=== PATIENT | female | born 1950 | race Caucasian/White ===

== ENCOUNTER 2016-07-01 20:01 | Inpatient (IN) | payer MEDICARE ==
[~2016-07-01] VITALS: Ht 154.9 cm; Wt 68.0 kg
[~2016-07-01 20:01] MED LIST: FENTANYL 100 MCG/2 ML AMP IV ONE; PROPOFOL 20 ML PER ML IV ONE; ROCURONIUM 50 MG VIAL IV ONE; SUCCINYLCHOLINE 20 MG/ML VL IV ONE
[2016-07-01] MEDS ORDERED: OPTIRAY 350 100 ML VIAL HMH IV ONE (20:02)
[2016-07-01] MEDS ORDERED: OPTIRAY 350 50 ML HMH IV ONE (20:02)
[2016-07-02] VITALS (30 sets, daily range): BP systolic 104–163; RESP 9–28; TEMP 97.5–98; Ht 154.9 cm; Wt 68.0 kg
[2016-07-02] MEDS ORDERED: CEFTRIAXONE 1 GM VIAL ONE (01:05)
[2016-07-02] MEDS ORDERED: SODIUM CHLORIDE 0.9% 1,000 ML ONE (01:06)
[2016-07-02] MEDS ORDERED: SODIUM CHLORIDE 0.9% 100 ML IV ONE ×2 (01:06→04:04)
[2016-07-02] MEDS ORDERED: LIDOCAINE 1% MDV 20 ML ONE (03:03)
[2016-07-02] MEDS ORDERED: PROPOFOL 100 ML 100 ML IV ONE ×2 (03:05→06:13)
[2016-07-02] MEDS ORDERED: LACT RINGERS 1,000 ML IV SCH (03:35)
[2016-07-02] MEDS ORDERED: PIPERACIL/TAZO 3.375GM/50ML 50 ML IV ONE (03:35)
[2016-07-02] MEDS ORDERED: LACT RINGERS 1,000 ML IV ONE ×3 (04:04→08:35)
[2016-07-02] MEDS ORDERED: PIPER/TAZO 3.375 GM PYXIS ONE (04:04)
[2016-07-02] MEDS ORDERED: DEXTROSE 50% SYRINGE 50 ML IV PRN (06:00)
[2016-07-02] MEDS ORDERED: SALINE FLUSH 10 ML FLUSH PRN (06:00)
[2016-07-02] MEDS ORDERED: ONDANSETRON 4 MG VIAL IV PRN (06:00)
[2016-07-02] MEDS: SODIUM CHLORIDE 0.9% FLUSH BAG 500 ML IV SCH (06:00)
[2016-07-02] MEDS ORDERED: MORPHINE 2 MG/ML SYR IV PRN (06:00)
[2016-07-02] MEDS ORDERED: GLUCAGON 1 MG VIAL IM PRN (06:00)
[2016-07-02] MEDS ORDERED: PROPOFOL 100 ML 100 ML IV PRN (06:55)
[2016-07-02] MEDS: PIPERACIL/TAZO 3.375GM/50ML 50 ML IV SCH ×4 (07:00→23:31)
[2016-07-02] MEDS: SALINE FLUSH 10 ML FLUSH SCH ×2 (08:00→19:28)
[2016-07-02] MEDS: PANTOPRAZOLE 40 MG VIAL IV SCH ×2 (08:24→19:53)
[2016-07-02] MEDS: LACT RINGERS 1,000 ML IV SCH ×2 (08:25→14:49)
[2016-07-02] MEDS: ACETAMINOPHEN 1,000 MG/100 ML IV PRN ×2 (10:12→19:57)
[2016-07-02] MEDS ORDERED: FENTANYL 100 MCG/2 ML AMP IV ONE (10:39)
[2016-07-02] MEDS ORDERED: PROPOFOL 20 ML PER ML IV ONE (10:39)
[2016-07-02] MEDS ORDERED: GLYCOPYRROLATE 0.2 MG/ML VIAL IV ONE (10:39)
[2016-07-02] MEDS ORDERED: NEOSTIGMINE 10 MG/10 ML VIAL IV ONE (10:39)
[2016-07-02] MEDS ORDERED: LIDOCAINE 2% SYR 5 ML IV ONE (10:39)
[2016-07-02] MEDS ORDERED: ROCURONIUM 50 MG VIAL IV ONE (10:39)
[2016-07-02] MEDS ORDERED: ONDANSETRON 4 MG VIAL IV PUSH ONE (10:39)
[2016-07-02] MEDS: MAGNESIUM SULF 1 GM/100 ML 100 ML IV SCH ×4 (11:00→14:26)
[2016-07-03] VITALS (25 sets, daily range): BP systolic 124–161; RESP 9–25; TEMP 97.3–98.6
[2016-07-03] MEDS: MORPHINE 2 MG/ML SYR IV PRN ×4 (00:54→23:05)
[2016-07-03] MEDS: PIPERACIL/TAZO 3.375GM/50ML 50 ML IV SCH (05:11)
[2016-07-03] MEDS: SODIUM CHLORIDE 0.9% FLUSH BAG 500 ML IV SCH (05:11)
[2016-07-03] MEDS: SALINE FLUSH 10 ML FLUSH SCH ×2 (07:53→21:34)
[2016-07-03] MEDS: PANTOPRAZOLE 40 MG VIAL IV SCH ×2 (07:53→21:31)
[2016-07-03] MEDS ORDERED: LACT RINGERS 1,000 ML IV SCH (08:55)
[2016-07-03] MEDS: PIPERACIL/TAZO 2.25GM/50ML 50 ML IV SCH ×2 (11:45→17:21)
[2016-07-03] MEDS: MORPHINE 4 MG/ML SYR IV PRN ×3 (12:18→21:11)
[2016-07-03] MEDS: METOPROLOL 5 MG/5 ML VIAL IV SCH ×2 (17:21→21:33)
[2016-07-04] VITALS (25 sets, daily range): BP systolic 131–180; RESP 9–22; TEMP 98.4–98.9
[2016-07-04] MEDS: PIPERACIL/TAZO 2.25GM/50ML 50 ML IV SCH ×4 (00:17→16:37)
[2016-07-04] MEDS: ACETAMINOPHEN 1,000 MG/100 ML IV PRN ×2 (00:17→10:02)
[2016-07-04] MEDS: METOPROLOL 5 MG/5 ML VIAL IV SCH ×7 (00:50→23:30)
[2016-07-04] MEDS: SODIUM CHLORIDE 0.9% FLUSH BAG 500 ML IV SCH (04:32)
[2016-07-04] MEDS: MORPHINE 2 MG/ML SYR IV PRN ×3 (06:11→23:27)
[2016-07-04] MEDS ORDERED: LACT RINGERS 1,000 ML IV SCH ×2 (06:55→10:25)
[2016-07-04] MEDS: SALINE FLUSH 10 ML FLUSH SCH ×2 (09:58→20:33)
[2016-07-04] MEDS: PANTOPRAZOLE 40 MG VIAL IV SCH ×2 (09:59→20:33)
[2016-07-04] MEDS: POTASSIUM CHLORIDE PREMIX 50 ML IV SCH ×4 (11:08→16:32)
[2016-07-04] MEDS: MORPHINE 4 MG/ML SYR IV PRN (15:35)
[2016-07-04] MEDS ORDERED: MISSING DOSE XX ONE (23:25)
[2016-07-05] VITALS (26 sets, daily range): BP systolic 116–184; RESP 8–25; TEMP 97.3–99.4
[2016-07-05] MEDS: PIPERACIL/TAZO 2.25GM/50ML 50 ML IV SCH ×4 (00:36→18:31)
[2016-07-05] MEDS: ACETAMINOPHEN 1,000 MG/100 ML IV PRN (00:36)
[2016-07-05] MEDS: METOPROLOL 5 MG/5 ML VIAL IV SCH ×5 (04:06→19:59)
[2016-07-05] MEDS: SODIUM CHLORIDE 0.9% FLUSH BAG 500 ML IV SCH (04:08)
[2016-07-05] MEDS: MORPHINE 2 MG/ML SYR IV PRN ×2 (06:15→22:54)
[2016-07-05] MEDS ORDERED: PANTOPRAZOLE 40 MG TAB PO SCH (07:00)
[2016-07-05] MEDS: PANTOPRAZOLE 40 MG VIAL IV SCH ×2 (08:55→20:00)
[2016-07-05] MEDS: SALINE FLUSH 10 ML FLUSH SCH ×2 (08:55→19:58)
[2016-07-05] MEDS: POTASSIUM CHLORIDE PREMIX 50 ML IV SCH ×4 (10:23→14:30)
[2016-07-05] MEDS: ACETAMINOPHEN 325 MG TAB PO PRN (15:29)
[2016-07-05] MEDS: LABETALOL 100 MG/20 ML VIAL IV PUSH PRN (15:30)
[2016-07-05] MEDS: QUEtiapine 25 MG TAB PO SCH (19:59)
[2016-07-06] VITALS (25 sets, daily range): BP systolic 96–184; RESP 10–22; TEMP 98.3–98.9
[2016-07-06] MEDS: PIPERACIL/TAZO 2.25GM/50ML 50 ML IV SCH ×2 (00:55→05:34)
[2016-07-06] MEDS: METOPROLOL 5 MG/5 ML VIAL IV SCH ×6 (00:55→21:07)
[2016-07-06] MEDS: MORPHINE 4 MG/ML SYR IV PRN ×3 (02:50→14:44)
[2016-07-06] MEDS: ACETAMINOPHEN 325 MG TAB PO PRN (02:50)
[2016-07-06] MEDS: SODIUM CHLORIDE 0.9% FLUSH BAG 500 ML IV SCH (05:34)
[2016-07-06] MEDS ORDERED: PHARMACY TO DOSE ZOSYN IV SCH ×2 (08:35)
[2016-07-06] MEDS: SALINE FLUSH 10 ML FLUSH SCH ×2 (08:47→19:41)
[2016-07-06] MEDS: PANTOPRAZOLE 40 MG VIAL IV SCH ×2 (08:50→21:07)
[2016-07-06] MEDS: PIPERACIL/TAZO 3.375GM/50ML 50 ML IV SCH ×2 (11:15→16:59)
[2016-07-06] MEDS: QUEtiapine 25 MG TAB PO SCH (21:08)
[2016-07-07] VITALS (20 sets, daily range): BP systolic 96–169; RESP 10–21; TEMP 97.5–99
[2016-07-07] MEDS: METOPROLOL 5 MG/5 ML VIAL IV SCH ×6 (00:32→21:19)
[2016-07-07] MEDS: PIPERACIL/TAZO 3.375GM/50ML 50 ML IV SCH ×4 (00:34→18:05)
[2016-07-07] MEDS: MORPHINE 2 MG/ML SYR IV PRN ×2 (00:35→16:41)
[2016-07-07] MEDS: SODIUM CHLORIDE 0.9% FLUSH BAG 500 ML IV SCH (05:10)
[2016-07-07] MEDS ORDERED: MAGNESIUM SULF 1 GM/100 ML 100 ML IV ONE (07:40)
[2016-07-07] MEDS ORDERED: POTASSIUM PHOSPHATE 30 MMOL in SODIUM CHLORIDE 0.9% 250 ML IV ONE (07:40)
[2016-07-07] MEDS: PANTOPRAZOLE 40 MG VIAL IV SCH (08:00)
[2016-07-07] MEDS: SALINE FLUSH 10 ML FLUSH SCH ×2 (08:57→20:40)
[2016-07-07] MEDS: PANTOPRAZOLE 40 MG TAB PO SCH ×2 (08:57→17:46)
[2016-07-07] MEDS ORDERED: MISSING DOSE XX ONE ×3 (16:50→20:55)
[2016-07-07] MEDS ORDERED: SODIUM CHLORIDE 0.9% 500 ML IV ONE (18:20)
[2016-07-07] MEDS: MORPHINE 4 MG/ML SYR IV PRN ×2 (18:34→20:40)
[2016-07-07] MEDS: QUEtiapine 25 MG TAB PO SCH (21:00)
[2016-07-08] VITALS (66 sets, daily range): BP systolic 80–183; RESP 9–22; TEMP 97.6–98.7
[2016-07-08] MEDS: METOPROLOL 5 MG/5 ML VIAL IV SCH ×6 (00:01→23:03)
[2016-07-08] MEDS: PIPERACIL/TAZO 3.375GM/50ML 50 ML IV SCH ×5 (00:01→23:03)
[2016-07-08] MEDS: MORPHINE 2 MG/ML SYR IV PRN ×3 (01:23→16:54)
[2016-07-08] MEDS ORDERED: METOPROLOL 5 MG/5 ML VIAL IV ONE (02:18)
[2016-07-08] MEDS ORDERED: CARDIZEM 1 MG/ML DRIP 125 ML IV PRN (03:25)
[2016-07-08] MEDS: SODIUM CHLORIDE 0.9% FLUSH BAG 500 ML IV SCH (03:58)
[2016-07-08] MEDS ORDERED: *PINK BRACELET XX ONE (04:25)
[2016-07-08] MEDS: PANTOPRAZOLE 40 MG TAB PO SCH (06:01)
[2016-07-08] MEDS: ACETAMINOPHEN 325 MG TAB PO PRN (06:52)
[2016-07-08] MEDS: *HOME MEDS KEPT IN PHARMACY XX SCH ×2 (07:18→19:29)
[2016-07-08] MEDS ORDERED: KCL 20 MEQ/15 ML UDC PO ONE (07:30)
[2016-07-08] MEDS ORDERED: MAGNESIUM SULF 1 GM/100 ML 100 ML IV ONE (07:55)
[2016-07-08] MEDS ORDERED: POTASSIUM CHLORIDE PREMIX 50 ML IV SCH (07:55)
[2016-07-08] MEDS: SALINE FLUSH 10 ML FLUSH SCH ×2 (08:15→19:53)
[2016-07-08] MEDS ORDERED: METOPROLOL TART 25 MG TAB PO SCH (09:00)
[2016-07-08] MEDS ORDERED: OPTIRAY 350 100 ML VIAL HMH IV ONE (10:03)
[2016-07-08] MEDS: POTASSIUM CHLORIDE PREMIX 50 ML IV SCH ×4 (10:14→19:57)
[2016-07-08] MEDS ORDERED: FAMOTIDINE 20 MG INJ IV ONE (11:35)
[2016-07-08] MEDS ORDERED: LACT RINGERS 1,000 ML IV SCH (11:35)
[2016-07-08] MEDS ORDERED: METOCLOPRAMIDE 10 MG/2 ML VIAL IV PUSH ONE (11:35)
[2016-07-08] MEDS ORDERED: MIDAZOLAM 2 MG/2 ML INJ IV ONE (11:35)
[2016-07-08] MEDS ORDERED: LIDOCAINE 1% BUFFERED 1 ML SYR INTRADERM PRN (11:35)
[2016-07-08] MEDS ORDERED: MISSING DOSE XX ONE (13:00)
[2016-07-08] MEDS ORDERED: MORPHINE 2 MG/ML SYR IV PRN (15:15)
[2016-07-08] MEDS ORDERED: MEPERIDINE 25 MG/ML IV PRN (15:15)
[2016-07-08] MEDS ORDERED: OXYCODONE 5 MG TAB PO PRN (15:15)
[2016-07-08] MEDS ORDERED: DILAUDID 1 MG/ML AMP IV PRN (15:15)
[2016-07-08] MEDS ORDERED: MORPHINE 4 MG/ML SYR IV PRN (15:15)
[2016-07-08] MEDS ORDERED: ONDANSETRON 4 MG VIAL IV PRN (15:15)
[2016-07-08] MEDS ORDERED: SALINE FLUSH 10 ML FLUSH PRN (15:25)
[2016-07-08] MEDS: SODIUM CHLORIDE 0.9% 1,000 ML IV SCH (16:25)
[2016-07-08] MEDS: QUEtiapine 25 MG TAB PO SCH (19:27)
[2016-07-08] MEDS: PANTOPRAZOLE 40 MG VIAL IV SCH (19:52)
[2016-07-08] MEDS: MORPHINE 4 MG/ML SYR IV PRN (19:54)
[2016-07-08] MEDS: LABETALOL 100 MG/20 ML VIAL IV PUSH PRN (21:28)
[2016-07-09] VITALS (27 sets, daily range): BP systolic 89–179; RESP 10–19; TEMP 97.8–98.7
[2016-07-09] MEDS: MORPHINE 4 MG/ML SYR IV PRN (00:35)
[2016-07-09] MEDS: SODIUM CHLORIDE 0.9% 1,000 ML IV SCH (04:05)
[2016-07-09] MEDS: SODIUM CHLORIDE 0.9% FLUSH BAG 500 ML IV SCH (04:06)
[2016-07-09] MEDS: METOPROLOL 5 MG/5 ML VIAL IV SCH ×4 (05:07→23:54)
[2016-07-09] MEDS: PIPERACIL/TAZO 3.375GM/50ML 50 ML IV SCH ×4 (05:07→23:53)
[2016-07-09] MEDS: MORPHINE 2 MG/ML SYR IV PRN ×3 (05:12→18:55)
[2016-07-09] MEDS: *HOME MEDS KEPT IN PHARMACY XX SCH ×2 (07:06→19:53)
[2016-07-09] MEDS: PANTOPRAZOLE 40 MG VIAL IV SCH ×2 (07:46→20:25)
[2016-07-09] MEDS: SALINE FLUSH 10 ML FLUSH SCH ×2 (07:46→20:25)
[2016-07-09] MEDS ORDERED: MISSING DOSE XX ONE (10:55)
[2016-07-09] MEDS: METRONIDAZOLE 500MG/100ML 100 ML IV SCH ×2 (16:03→23:53)
[2016-07-09] MEDS: QUEtiapine 25 MG TAB PO SCH (20:16)
[2016-07-10] VITALS (26 sets, daily range): BP systolic 96–173; RESP 8–23; TEMP 97.4–98.5
[2016-07-10] MEDS: MORPHINE 2 MG/ML SYR IV PRN ×8 (00:11→19:56)
[2016-07-10] MEDS: SODIUM CHLORIDE 0.9% FLUSH BAG 500 ML IV SCH (06:00)
[2016-07-10] MEDS: SODIUM CHLORIDE 0.9% 1,000 ML IV SCH (06:09)
[2016-07-10] MEDS: METOPROLOL 5 MG/5 ML VIAL IV SCH ×4 (06:11→23:40)
[2016-07-10] MEDS: PIPERACIL/TAZO 3.375GM/50ML 50 ML IV SCH ×4 (06:11→23:39)
[2016-07-10] MEDS: *HOME MEDS KEPT IN PHARMACY XX SCH ×2 (08:00→19:28)
[2016-07-10] MEDS: SALINE FLUSH 10 ML FLUSH SCH ×2 (08:40→19:54)
[2016-07-10] MEDS: PANTOPRAZOLE 40 MG VIAL IV SCH ×2 (08:41→19:54)
[2016-07-10] MEDS: METRONIDAZOLE 500MG/100ML 100 ML IV SCH ×3 (08:44→23:40)
[2016-07-10] MEDS: MORPHINE 4 MG/ML SYR IV PRN (17:34)
[2016-07-10] MEDS: QUEtiapine 25 MG TAB PO SCH (19:57)
[2016-07-11] VITALS (24 sets, daily range): BP systolic 105–160; RESP 8–15; TEMP 98.3–98.9
[2016-07-11] MEDS: MORPHINE 2 MG/ML SYR IV PRN ×4 (02:34→11:02)
[2016-07-11] MEDS: PIPERACIL/TAZO 3.375GM/50ML 50 ML IV SCH ×3 (05:28→18:10)
[2016-07-11] MEDS: SODIUM CHLORIDE 0.9% FLUSH BAG 500 ML IV SCH (05:28)
[2016-07-11] MEDS: METOPROLOL 5 MG/5 ML VIAL IV SCH ×3 (06:36→18:10)
[2016-07-11] MEDS: SALINE FLUSH 10 ML FLUSH SCH ×2 (07:26→21:31)
[2016-07-11] MEDS: *HOME MEDS KEPT IN PHARMACY XX SCH ×2 (07:27→19:50)
[2016-07-11] MEDS: METRONIDAZOLE 500MG/100ML 100 ML IV SCH ×2 (07:44→16:31)
[2016-07-11] MEDS: PANTOPRAZOLE 40 MG VIAL IV SCH (07:44)
[2016-07-11] MEDS: MICAFUNGIN 100 MG in SODIUM CHLORIDE 0.9% 100 ML IV SCH (09:57)
[2016-07-11] MEDS: MORPHINE 4 MG/ML SYR IV PRN ×2 (12:59→16:38)
[2016-07-11] MEDS: PANTOPRAZOLE 40 MG TAB PO SCH (16:00)
[2016-07-11] MEDS: QUEtiapine 25 MG TAB PO SCH (21:31)
[2016-07-12] VITALS (25 sets, daily range): BP systolic 127–187; RESP 10–23; TEMP 98.2–98.8
[2016-07-12] MEDS: METOPROLOL 5 MG/5 ML VIAL IV SCH ×4 (00:07→18:07)
[2016-07-12] MEDS: METRONIDAZOLE 500MG/100ML 100 ML IV SCH ×2 (00:08→07:48)
[2016-07-12] MEDS: PIPERACIL/TAZO 3.375GM/50ML 50 ML IV SCH ×4 (00:08→18:07)
[2016-07-12] MEDS: SODIUM CHLORIDE 0.9% 1,000 ML IV SCH (05:09)
[2016-07-12] MEDS: SODIUM CHLORIDE 0.9% FLUSH BAG 500 ML IV SCH (05:10)
[2016-07-12] MEDS: PANTOPRAZOLE 40 MG TAB PO SCH ×2 (05:12→15:24)
[2016-07-12] MEDS: SALINE FLUSH 10 ML FLUSH SCH ×2 (07:22→19:39)
[2016-07-12] MEDS: *HOME MEDS KEPT IN PHARMACY XX SCH ×2 (07:23→19:23)
[2016-07-12] MEDS: MICAFUNGIN 100 MG in SODIUM CHLORIDE 0.9% 100 ML IV SCH (07:48)
[2016-07-12] MEDS: MORPHINE 4 MG/ML SYR IV PRN ×4 (07:49→18:07)
[2016-07-12] MEDS ORDERED: CALCIUM GLUCONATE 1,000 MG in SODIUM CHLORIDE 0.9% 100 ML IV ONE (08:30)
[2016-07-12] MEDS: POTASSIUM CHLORIDE PREMIX 50 ML IV SCH ×6 (08:59→14:17)
[2016-07-12] MEDS: [UNRECOGNIZED DRUG - OTHER] SUBQ SCH ×3 (11:56→20:51)
[2016-07-12] MEDS: QUEtiapine 25 MG TAB PO SCH (19:40)
[2016-07-12] MEDS ORDERED: MISSING DOSE XX ONE (20:00)
[2016-07-13] VITALS (24 sets, daily range): BP systolic 109–178; RESP 9–26; TEMP 98–98.8
[2016-07-13] MEDS: METOPROLOL 5 MG/5 ML VIAL IV SCH ×4 (00:06→17:35)
[2016-07-13] MEDS: PIPERACIL/TAZO 3.375GM/50ML 50 ML IV SCH ×5 (00:07→23:23)
[2016-07-13] MEDS: ONDANSETRON 4 MG VIAL IV PRN (03:21)
[2016-07-13] MEDS: SODIUM CHLORIDE 0.9% 1,000 ML IV SCH (04:15)
[2016-07-13] MEDS: PANTOPRAZOLE 40 MG TAB PO SCH ×2 (04:17→16:15)
[2016-07-13] MEDS: SODIUM CHLORIDE 0.9% FLUSH BAG 500 ML IV SCH (04:17)
[2016-07-13] MEDS: *HOME MEDS KEPT IN PHARMACY XX SCH ×2 (08:00→20:00)
[2016-07-13] MEDS: SALINE FLUSH 10 ML FLUSH SCH ×2 (08:21→20:13)
[2016-07-13] MEDS: MICAFUNGIN 100 MG in SODIUM CHLORIDE 0.9% 100 ML IV SCH (08:22)
[2016-07-13] MEDS: [UNRECOGNIZED DRUG - OTHER] SUBQ SCH ×3 (08:22→20:13)
[2016-07-13] MEDS ORDERED: LISINOPRIL 10 MG TAB PO SCH (10:10)
[2016-07-13] MEDS: MAGNESIUM SULF 1 GM/100 ML 100 ML IV SCH ×4 (11:27→16:15)
[2016-07-13] MEDS: METOPROLOL TART 25 MG TAB PO SCH ×2 (11:28→20:13)
[2016-07-13] MEDS: LEVEMIR INSULIN SUBQ SCH ×2 (11:35→20:20)
[2016-07-13] MEDS: MORPHINE 2 MG/ML SYR IV PRN ×2 (13:49→18:19)
[2016-07-13] MEDS: QUEtiapine 25 MG TAB PO SCH (20:13)
[2016-07-14] VITALS (24 sets, daily range): BP systolic 95–172; RESP 9–16; TEMP 97.5–98.4
[2016-07-14] MEDS ORDERED: *PATIENT RECEIVING TUBE FEEDS, ASSESS/ADJUST MEDICATIONS NG SCH (04:45)
[2016-07-14] MEDS: SODIUM CHLORIDE 0.9% 1,000 ML IV SCH (04:50)
[2016-07-14] MEDS: SODIUM CHLORIDE 0.9% FLUSH BAG 500 ML IV SCH (04:52)
[2016-07-14] MEDS: PIPERACIL/TAZO 3.375GM/50ML 50 ML IV SCH ×3 (05:15→16:19)
[2016-07-14] MEDS ORDERED: ACETAMINOPHEN 650 MG/20.3 ML UDC NG PRN ×2 (05:15→05:25)
[2016-07-14] MEDS: LANSOPRAZOLE 30 MG SOLUTAB NG SCH ×2 (05:43→16:22)
[2016-07-14] MEDS: [UNRECOGNIZED DRUG - OTHER] SUBQ SCH ×3 (07:45→20:17)
[2016-07-14] MEDS: SALINE FLUSH 10 ML FLUSH SCH ×2 (07:45→20:16)
[2016-07-14] MEDS: METOPROLOL TART 25 MG TAB NG SCH ×2 (07:46→20:17)
[2016-07-14] MEDS: MICAFUNGIN 100 MG in SODIUM CHLORIDE 0.9% 100 ML IV SCH (07:46)
[2016-07-14] MEDS: *HOME MEDS KEPT IN PHARMACY XX SCH ×2 (07:47→20:00)
[2016-07-14] MEDS: LEVEMIR INSULIN SUBQ SCH ×2 (07:47→20:21)
[2016-07-14] MEDS ORDERED: LISINOPRIL 10 MG TAB NG SCH (09:00)
[2016-07-14] MEDS ORDERED: KCL 20 MEQ/15 ML UDC PO ONE (14:30)
[2016-07-14] MEDS: MORPHINE 2 MG/ML SYR IV PRN ×3 (16:20→21:25)
[2016-07-14] MEDS: QUEtiapine 25 MG TAB NG SCH (20:17)
[2016-07-15] VITALS (24 sets, daily range): BP systolic 125–187; RESP 10–21; TEMP 97.7–98.2
[2016-07-15] MEDS: PIPERACIL/TAZO 3.375GM/50ML 50 ML IV SCH ×3 (01:47→13:08)
[2016-07-15] MEDS: MORPHINE 2 MG/ML SYR IV PRN ×5 (01:47→18:35)
[2016-07-15] MEDS: SODIUM CHLORIDE 0.9% FLUSH BAG 500 ML IV SCH (06:00)
[2016-07-15] MEDS: LANSOPRAZOLE 30 MG SOLUTAB NG SCH ×2 (06:22→16:38)
[2016-07-15] MEDS: *HOME MEDS KEPT IN PHARMACY XX SCH ×2 (07:55→20:00)
[2016-07-15] MEDS ORDERED: MISSING DOSE XX ONE (08:55)
[2016-07-15] MEDS: MICAFUNGIN 100 MG in SODIUM CHLORIDE 0.9% 100 ML IV SCH (09:02)
[2016-07-15] MEDS: SALINE FLUSH 10 ML FLUSH SCH ×2 (09:02→20:50)
[2016-07-15] MEDS: [UNRECOGNIZED DRUG - OTHER] SUBQ SCH ×3 (09:04→20:52)
[2016-07-15] MEDS: LEVEMIR INSULIN SUBQ SCH ×2 (09:23→20:56)
[2016-07-15] MEDS: METOPROLOL TART 25 MG TAB NG SCH ×2 (09:32→20:52)
[2016-07-15] MEDS: LISINOPRIL 10 MG TAB NG SCH (09:33)
[2016-07-15] MEDS: QUEtiapine 25 MG TAB NG SCH (20:52)
[2016-07-16] VITALS (18 sets, daily range): BP systolic 129–169; RESP 10–26; TEMP 97.8–98.3
[2016-07-16] MEDS: SODIUM CHLORIDE 0.9% 1,000 ML IV SCH ×2 (01:38→20:52)
[2016-07-16] MEDS: MORPHINE 2 MG/ML SYR IV PRN ×4 (03:46→16:57)
[2016-07-16] MEDS: SODIUM CHLORIDE 0.9% FLUSH BAG 500 ML IV SCH (05:58)
[2016-07-16] MEDS: LANSOPRAZOLE 30 MG SOLUTAB NG SCH ×2 (05:59→16:59)
[2016-07-16] MEDS: *HOME MEDS KEPT IN PHARMACY XX SCH ×2 (08:00→20:00)
[2016-07-16] MEDS: MICAFUNGIN 100 MG in SODIUM CHLORIDE 0.9% 100 ML IV SCH (08:47)
[2016-07-16] MEDS: SALINE FLUSH 10 ML FLUSH SCH ×2 (08:47→20:00)
[2016-07-16] MEDS: METOPROLOL TART 25 MG TAB NG SCH ×2 (08:48→20:45)
[2016-07-16] MEDS: LISINOPRIL 10 MG TAB NG SCH (08:50)
[2016-07-16] MEDS: [UNRECOGNIZED DRUG - OTHER] SUBQ SCH ×3 (08:50→20:57)
[2016-07-16] MEDS: LEVEMIR INSULIN SUBQ SCH ×2 (08:52→20:47)
[2016-07-16] MEDS ORDERED: MISSING DOSE XX ONE (16:55)
[2016-07-16] MEDS: MICONAZOLE 2% PWD TOPICAL PRN (16:59)
[2016-07-16] MEDS: QUEtiapine 25 MG TAB NG SCH (20:45)
[2016-07-17] MEDS: MORPHINE 2 MG/ML SYR IV PRN ×7 (01:25→20:15)
[2016-07-17 03:06] VITALS: BP_SYST 139; RESP 16; TEMP 98.4
[2016-07-17] MEDS: SODIUM CHLORIDE 0.9% FLUSH BAG 500 ML IV SCH (05:13)
[2016-07-17] MEDS: LANSOPRAZOLE 30 MG SOLUTAB NG SCH ×2 (06:19→15:36)
[2016-07-17 07:49] VITALS: BP_SYST 143; RESP 18; TEMP 98.6
[2016-07-17] MEDS: *HOME MEDS KEPT IN PHARMACY XX SCH ×2 (08:00→19:30)
[2016-07-17] MEDS: SALINE FLUSH 10 ML FLUSH SCH ×2 (08:00→19:31)
[2016-07-17] MEDS: MICAFUNGIN 100 MG in SODIUM CHLORIDE 0.9% 100 ML IV SCH (08:24)
[2016-07-17] MEDS: [UNRECOGNIZED DRUG - OTHER] SUBQ SCH ×3 (08:29→20:20)
[2016-07-17] MEDS: LEVEMIR INSULIN SUBQ SCH ×2 (08:35→20:33)
[2016-07-17] MEDS: METOPROLOL TART 25 MG TAB NG SCH ×2 (08:40→20:24)
[2016-07-17] MEDS: LISINOPRIL 10 MG TAB NG SCH (08:43)
[2016-07-17] MEDS: ONDANSETRON 4 MG VIAL IV PRN (08:45)
[2016-07-17] MEDS ORDERED: KCL 20 MEQ/15 ML UDC JTUBE ONE (09:55)
[2016-07-17 12:15] VITALS: BP_SYST 152; RESP 16; TEMP 97.4
[2016-07-17 15:19] VITALS: BP_SYST 168; RESP 16; TEMP 97.9
[2016-07-17] MEDS: SODIUM CHLORIDE 0.9% 1,000 ML IV SCH (18:29)
[2016-07-17 19:32] VITALS: BP_SYST 177; RESP 18; TEMP 98.2
[2016-07-17] MEDS: LABETALOL 100 MG/20 ML VIAL IV PUSH PRN (20:17)
[2016-07-17] MEDS: QUEtiapine 25 MG TAB NG SCH (20:24)
[2016-07-17 23:12] VITALS: BP_SYST 147; RESP 16; TEMP 98.5
[2016-07-18 04:20] VITALS: BP_SYST 150; RESP 18; TEMP 98.1
[2016-07-18] MEDS: SODIUM CHLORIDE 0.9% FLUSH BAG 500 ML IV SCH (04:37)
[2016-07-18] MEDS: MORPHINE 2 MG/ML SYR IV PRN ×3 (05:16→21:27)
[2016-07-18] MEDS: LANSOPRAZOLE 30 MG SOLUTAB NG SCH ×2 (06:13→16:49)
[2016-07-18 07:38] VITALS: BP_SYST 157; RESP 18; TEMP 98.2
[2016-07-18] MEDS: SALINE FLUSH 10 ML FLUSH SCH ×2 (08:00→19:49)
[2016-07-18] MEDS: [UNRECOGNIZED DRUG - OTHER] SUBQ SCH ×3 (08:26→21:26)
[2016-07-18] MEDS: *HOME MEDS KEPT IN PHARMACY XX SCH ×2 (08:26→19:49)
[2016-07-18] MEDS: LEVEMIR INSULIN SUBQ SCH ×2 (08:27→21:51)
[2016-07-18] MEDS: LISINOPRIL 10 MG TAB NG SCH (08:27)
[2016-07-18] MEDS: METOPROLOL TART 25 MG TAB NG SCH ×2 (08:27→21:26)
[2016-07-18 11:07] VITALS: BP_SYST 160; RESP 18; TEMP 98.4
[2016-07-18] MEDS: MORPHINE 4 MG/ML SYR IV PRN (13:55)
[2016-07-18] MEDS: SODIUM CHLORIDE 0.9% 1,000 ML IV SCH (14:29)
[2016-07-18 15:19] VITALS: BP_SYST 165; RESP 18; TEMP 98.3
[2016-07-18 20:45] VITALS: BP_SYST 157; RESP 16; TEMP 98.4
[2016-07-18] MEDS: QUEtiapine 25 MG TAB NG SCH (21:26)
[2016-07-18 23:35] VITALS: BP_SYST 148; RESP 16; TEMP 98.2
[2016-07-19] MEDS: SODIUM CHLORIDE 0.9% FLUSH BAG 500 ML IV SCH (04:25)
[2016-07-19 04:56] VITALS: BP_SYST 138; RESP 20; TEMP 97.9
[2016-07-19] MEDS: LANSOPRAZOLE 30 MG SOLUTAB NG SCH ×2 (05:39→15:57)
[2016-07-19] MEDS: MORPHINE 2 MG/ML SYR IV PRN ×3 (05:40→21:52)
[2016-07-19 07:33] VITALS: BP_SYST 154; RESP 18; TEMP 98.3
[2016-07-19] MEDS: *HOME MEDS KEPT IN PHARMACY XX SCH ×2 (08:00→21:25)
[2016-07-19] MEDS: LEVEMIR INSULIN SUBQ SCH ×2 (08:20→21:47)
[2016-07-19] MEDS: LISINOPRIL 10 MG TAB NG SCH (08:21)
[2016-07-19] MEDS: SALINE FLUSH 10 ML FLUSH SCH ×2 (08:21→21:41)
[2016-07-19] MEDS: [UNRECOGNIZED DRUG - OTHER] SUBQ SCH ×3 (08:21→21:48)
[2016-07-19] MEDS: METOPROLOL TART 25 MG TAB NG SCH ×2 (08:21→21:47)
[2016-07-19 11:07] VITALS: BP_SYST 150; RESP 20; TEMP 98.2
[2016-07-19] MEDS: SODIUM CHLORIDE 0.9% 1,000 ML IV SCH (12:28)
[2016-07-19] MEDS: FLUCONAZOLE 100 MG in SODIUM CHLORIDE 0.9% 50 ML IV SCH (13:17)
[2016-07-19 15:08] VITALS: BP_SYST 158; RESP 20; TEMP 98.5
[2016-07-19 19:33] VITALS: BP_SYST 183; RESP 20; TEMP 98.3
[2016-07-19] MEDS: QUEtiapine 25 MG TAB NG SCH (21:47)
[2016-07-19 23:21] VITALS: BP_SYST 147; RESP 20; TEMP 98.1
[2016-07-20] VITALS (8 sets, daily range): BP systolic 138–171; RESP 16–20; TEMP 97.2–98
[2016-07-20] MEDS: SODIUM CHLORIDE 0.9% FLUSH BAG 500 ML IV SCH (00:15)
[2016-07-20] MEDS: LANSOPRAZOLE 30 MG SOLUTAB NG SCH ×2 (06:00→16:23)
[2016-07-20] MEDS: SALINE FLUSH 10 ML FLUSH SCH ×2 (08:00→21:12)
[2016-07-20] MEDS: *HOME MEDS KEPT IN PHARMACY XX SCH ×2 (08:00→20:00)
[2016-07-20] MEDS: [UNRECOGNIZED DRUG - OTHER] SUBQ SCH ×3 (08:40→20:24)
[2016-07-20] MEDS: LISINOPRIL 10 MG TAB NG SCH (08:41)
[2016-07-20] MEDS: METOPROLOL TART 25 MG TAB NG SCH ×2 (08:41→20:24)
[2016-07-20] MEDS: LEVEMIR INSULIN SUBQ SCH ×2 (08:42→21:12)
[2016-07-20] MEDS: FLUCONAZOLE 100 MG in SODIUM CHLORIDE 0.9% 50 ML IV SCH (08:44)
[2016-07-20] MEDS: SODIUM CHLORIDE 0.9% 1,000 ML IV SCH (12:48)
[2016-07-20] MEDS: QUEtiapine 25 MG TAB NG SCH (20:25)
[2016-07-20] MEDS: MORPHINE 2 MG/ML SYR IV PRN (21:13)
[2016-07-21] VITALS (7 sets, daily range): BP systolic 161–170; RESP 16–20; TEMP 97.4–98.3
[2016-07-21] MEDS: MORPHINE 4 MG/ML SYR IV PRN ×3 (03:20→18:23)
[2016-07-21] MEDS: LANSOPRAZOLE 30 MG SOLUTAB NG SCH ×2 (06:07→17:05)
[2016-07-21] MEDS: SODIUM CHLORIDE 0.9% FLUSH BAG 500 ML IV SCH (06:11)
[2016-07-21] MEDS: SALINE FLUSH 10 ML FLUSH SCH ×2 (08:00→20:00)
[2016-07-21] MEDS: *HOME MEDS KEPT IN PHARMACY XX SCH ×2 (08:00→20:00)
[2016-07-21] MEDS: [UNRECOGNIZED DRUG - OTHER] SUBQ SCH ×3 (08:34→20:28)
[2016-07-21] MEDS: FLUCONAZOLE 100 MG in SODIUM CHLORIDE 0.9% 50 ML IV SCH (08:35)
[2016-07-21] MEDS: LISINOPRIL 20 MG TAB NG SCH (08:36)
[2016-07-21] MEDS: METOPROLOL TART 25 MG TAB NG SCH ×2 (08:36→20:27)
[2016-07-21] MEDS: LEVEMIR INSULIN SUBQ SCH ×2 (08:47→20:26)
[2016-07-21] MEDS: SODIUM CHLORIDE 0.9% 1,000 ML IV SCH (18:23)
[2016-07-21] MEDS: QUEtiapine 25 MG TAB NG SCH (20:27)
[2016-07-22] VITALS (7 sets, daily range): BP systolic 151–166; RESP 16–18; TEMP 97.7–100.1
[2016-07-22] MEDS: MORPHINE 2 MG/ML SYR IV PRN ×2 (02:24→06:03)
[2016-07-22] MEDS: SODIUM CHLORIDE 0.9% FLUSH BAG 500 ML IV SCH (05:12)
[2016-07-22] MEDS: LANSOPRAZOLE 30 MG SOLUTAB NG SCH ×2 (05:54→17:18)
[2016-07-22] MEDS: SALINE FLUSH 10 ML FLUSH SCH (08:00)
[2016-07-22] MEDS: *HOME MEDS KEPT IN PHARMACY XX SCH ×2 (09:00→20:00)
[2016-07-22] MEDS: [UNRECOGNIZED DRUG - OTHER] SUBQ SCH ×3 (09:00→21:00)
[2016-07-22] MEDS: FLUCONAZOLE 100 MG in SODIUM CHLORIDE 0.9% 50 ML IV SCH (09:00)
[2016-07-22] MEDS: LEVEMIR INSULIN SUBQ SCH ×2 (09:02→21:42)
[2016-07-22] MEDS: METOPROLOL TART 25 MG TAB NG SCH (11:22)
[2016-07-22] MEDS: LISINOPRIL 20 MG TAB NG SCH (11:23)
[2016-07-22] MEDS: FLUCONAZOLE 100 MG TAB PO SCH (16:31)
[2016-07-22] MEDS: PANTOPRAZOLE 40 MG TAB PO SCH (21:00)
[2016-07-22] MEDS: METOPROLOL TART 25 MG TAB PO SCH (21:01)
[2016-07-22] MEDS: QUEtiapine 25 MG TAB PO SCH (22:12)
[2016-07-22] MEDS ORDERED: ACETAMINOPHEN 650 MG/20.3 ML UDC PO PRN (23:25)
[2016-07-23] VITALS (8 sets, daily range): BP systolic 143–166; RESP 18–20; TEMP 97.3–98.8
[2016-07-23] MEDS: *HOME MEDS KEPT IN PHARMACY XX SCH ×2 (08:00→19:23)
[2016-07-23] MEDS ORDERED: LISINOPRIL 20 MG TAB NG SCH (09:00)
[2016-07-23] MEDS: LEVEMIR INSULIN SUBQ SCH ×2 (09:07→21:21)
[2016-07-23] MEDS: METOPROLOL TART 25 MG TAB PO SCH (09:08)
[2016-07-23] MEDS: PANTOPRAZOLE 40 MG TAB PO SCH ×2 (09:09→20:54)
[2016-07-23] MEDS: LISINOPRIL 20 MG TAB PO SCH (09:09)
[2016-07-23] MEDS: FLUCONAZOLE 100 MG TAB PO SCH (09:10)
[2016-07-23] MEDS: [UNRECOGNIZED DRUG - OTHER] SUBQ SCH ×3 (09:19→20:54)
[2016-07-23] MEDS: METOPROLOL TART 50 MG TAB PO SCH ×2 (11:34→21:20)
[2016-07-23] MEDS ORDERED: ACETAMINOPHEN 325 MG TAB ONE (15:50)
[2016-07-23] MEDS: ACETAMINOPHEN 325 MG TAB PO PRN (16:18)
[2016-07-23] MEDS: QUEtiapine 25 MG TAB PO SCH (20:54)
[2016-07-23] MEDS ORDERED: MISSING DOSE XX ONE (21:05)
[2016-07-24] VITALS (7 sets, daily range): BP systolic 155–176; RESP 16–18; TEMP 97.3–98.8
[2016-07-24] MEDS: MICONAZOLE 2% PWD TOPICAL PRN (03:08)
[2016-07-24] MEDS: ACETAMINOPHEN 325 MG TAB PO PRN ×3 (03:11→15:12)
[2016-07-24] MEDS ORDERED: MISSING DOSE XX ONE (03:20)
[2016-07-24] MEDS: *HOME MEDS KEPT IN PHARMACY XX SCH ×2 (08:00→19:15)
[2016-07-24] MEDS: FLUCONAZOLE 100 MG TAB PO SCH (08:19)
[2016-07-24] MEDS: METOPROLOL TART 50 MG TAB PO SCH ×2 (08:19→20:03)
[2016-07-24] MEDS: PANTOPRAZOLE 40 MG TAB PO SCH ×2 (08:19→20:04)
[2016-07-24] MEDS: LISINOPRIL 20 MG TAB PO SCH (08:20)
[2016-07-24] MEDS: LEVEMIR INSULIN SUBQ SCH ×2 (08:41→19:55)
[2016-07-24] MEDS: [UNRECOGNIZED DRUG - OTHER] SUBQ SCH ×3 (08:47→20:04)
[2016-07-24] MEDS: QUEtiapine 25 MG TAB PO SCH (20:04)
[2016-07-25] VITALS (9 sets, daily range): BP systolic 118–182; RESP 16; TEMP 97.5–98.9
[2016-07-25] MEDS ORDERED: MISSING DOSE XX ONE (03:30)
[2016-07-25] MEDS: ACETAMINOPHEN 325 MG TAB PO PRN ×2 (05:12→11:51)
[2016-07-25] MEDS: *HOME MEDS KEPT IN PHARMACY XX SCH ×2 (08:00→19:38)
[2016-07-25] MEDS: PANTOPRAZOLE 40 MG TAB PO SCH ×2 (08:18→21:32)
[2016-07-25] MEDS: LISINOPRIL 20 MG TAB PO SCH (08:18)
[2016-07-25] MEDS: METOPROLOL TART 50 MG TAB PO SCH ×2 (08:18→21:32)
[2016-07-25] MEDS: FLUCONAZOLE 100 MG TAB PO SCH (08:19)
[2016-07-25] MEDS: [UNRECOGNIZED DRUG - OTHER] SUBQ SCH ×3 (08:34→21:32)
[2016-07-25] MEDS: LEVEMIR INSULIN SUBQ SCH ×2 (08:35→21:32)
[2016-07-25] MEDS: QUEtiapine 25 MG TAB PO SCH (21:32)
[2016-07-26] VITALS (7 sets, daily range): BP systolic 127–163; RESP 16–18; TEMP 97.2–98.4
[2016-07-26] MEDS: *HOME MEDS KEPT IN PHARMACY XX SCH ×2 (08:00→19:58)
[2016-07-26] MEDS: LEVEMIR INSULIN SUBQ SCH ×2 (09:00→21:50)
[2016-07-26] MEDS: [UNRECOGNIZED DRUG - OTHER] SUBQ SCH ×2 (09:00→16:00)
[2016-07-26] MEDS: METOPROLOL TART 50 MG TAB PO SCH ×2 (09:57→21:50)
[2016-07-26] MEDS: FLUCONAZOLE 100 MG TAB PO SCH (09:57)
[2016-07-26] MEDS: PANTOPRAZOLE 40 MG TAB PO SCH ×2 (09:57→21:50)
[2016-07-26] MEDS: LISINOPRIL 20 MG TAB PO SCH (09:57)
[2016-07-26] MEDS: QUEtiapine 25 MG TAB PO SCH (21:50)
[2016-07-27 03:37] VITALS: BP_SYST 119; RESP 18; TEMP 100.4
[2016-07-27 07:34] VITALS: BP_SYST 145; RESP 15; TEMP 99
[2016-07-27] MEDS: *HOME MEDS KEPT IN PHARMACY XX SCH ×2 (08:00→14:16)
[2016-07-27] MEDS: LEVEMIR INSULIN SUBQ SCH (08:47)
[2016-07-27] MEDS: PANTOPRAZOLE 40 MG TAB PO SCH (10:04)
[2016-07-27] MEDS: ACETAMINOPHEN 325 MG TAB PO PRN (10:07)
[2016-07-27] MEDS: LISINOPRIL 20 MG TAB PO SCH (10:09)
[2016-07-27] MEDS: FLUCONAZOLE 100 MG TAB PO SCH (10:09)
[2016-07-27] MEDS: METOPROLOL TART 50 MG TAB PO SCH (10:09)
[2016-07-27 11:30] VITALS: BP_SYST 153; RESP 16; TEMP 98.9
[2016-07-27 13:29] VITALS: BP_SYST 153; RESP 16; TEMP 98.9
== END 2016-07-27 15:15 | DRG 326 ==
LOC: ENRESERVTM → ENRESERVDT → ER 20:01 → EEVIPCON 07-02 05:58 → EMR 07-02 05:58 → ICU 07-02 06:35 → 5THW 07-07 14:22 → ICU 07-08 02:45 → 5THE 07-16 16:20
PROVIDERS: ADMIT Surgery; ATTEND Surgery
PROC: 0DQ90ZZ Repair Duodenum, Open Approach (ICD-10-PCS; principal; 2016-07-03)
PROC: 0W9B30Z Drainage of Left Pleural Cavity with Drainage Device, Percutaneous Approach (ICD-10-PCS; 2016-07-03)
PROC: 0DQ90ZZ Repair Duodenum, Open Approach (ICD-10-PCS; 2016-07-09)
PROC: 0D1A0Z4 Bypass Jejunum to Cutaneous, Open Approach (ICD-10-PCS; 2016-07-09)
PROC: 0W9G00Z Drainage of Peritoneal Cavity with Drainage Device, Open Approach (ICD-10-PCS; 2016-07-09)
DX: K26.5 Chronic or unspecified duodenal ulcer with perforation (principal); S36.115A Moderate laceration of liver, initial encounter; J96.01 Acute respiratory failure with hypoxia; S27.0XXA Traumatic pneumothorax, initial encounter; R34 Anuria and oliguria; S36.81XA Injury of peritoneum, initial encounter; S22.43XA Multiple fractures of ribs, bilateral, initial encounter for closed fracture; S37.019A Minor contusion of unspecified kidney, initial encounter; S32.019A Unspecified fracture of first lumbar vertebra, initial encounter for closed fracture; T79.7XXA Traumatic subcutaneous emphysema, initial encounter; N39.0 Urinary tract infection, site not specified; S32.029A Unspecified fracture of second lumbar vertebra, initial encounter for closed fracture; S32.039A Unspecified fracture of third lumbar vertebra, initial encounter for closed fracture; T50.905A Adverse effect of unspecified drugs, medicaments and biological substances, initial encounter; Y92.239 Unspecified place in hospital as the place of occurrence of the external cause; S10.93XA Contusion of unspecified part of neck, initial encounter; B96.20 Unspecified Escherichia coli [E. coli] as the cause of diseases classified elsewhere; R00.0 Tachycardia, unspecified; E83.42 Hypomagnesemia; E87.6 Hypokalemia; I10 Essential (primary) hypertension; W18.30XA Fall on same level, unspecified, initial encounter; Y92.9 Unspecified place or not applicable; R10.0 Acute abdomen; R41.0 Disorientation, unspecified
CPT/HCPCS: 36415; 70450; 71010; 71260; 74177; 80048; 80053; 80069; 81001; 82040; 82553; 82947; 83605; 83690; 83735; 84100; 84132; 84484; 85007; 85025; 85027; 85610; 85730; 87040; 87071; 87077; 87088; 87186; 93005; 93306; 94002; 94799; 96361; 96365; 96366; 99232; 99233; 99291

== ENCOUNTER 2016-07-28 03:55 | Inpatient (IN) | payer MEDICARE ==
[2016-07-28] VITALS (72 sets, daily range): BP systolic 61–167; RESP 12–33; TEMP 96.6–98.2; BMI 27.3
[~2016-07-28] VITALS: Ht 154.9 cm; Wt 65.3 kg
[2016-07-28] MEDS ORDERED: ETOMIDATE 2 MG/ML VIAL IV ONE (04:06)
[2016-07-28] MEDS ORDERED: SUCCINYLCHOLINE 20 MG/ML VL ONE (04:06)
[2016-07-28] MEDS ORDERED: PROPOFOL 100 ML 100 ML IV ONE (04:07)
[2016-07-28] MEDS ORDERED: ACETAMINOPHEN 650 MG SUPP RECTAL ONE (04:13)
[2016-07-28] MEDS ORDERED: MIDAZOLAM HCL 5 MG/5 ML VIAL ONE (05:00)
[2016-07-28] MEDS ORDERED: AZITHROMYCIN 500 MG VIAL IV ONE (05:11)
[2016-07-28] MEDS ORDERED: SODIUM CHLORIDE 0.9% 250 ML IV ONE (05:12)
[2016-07-28] MEDS ORDERED: SODIUM CHLORIDE 0.9% 100 ML IV ONE (05:12)
[2016-07-28] MEDS ORDERED: PIPER/TAZO 3.375 GM PYXIS ONE (05:12)
[2016-07-28] MEDS ORDERED: FENTANYL 100 MCG/2 ML AMP ONE (05:28)
[2016-07-28] MEDS ORDERED: PHARMACY TO DOSE ZOSYN IV SCH (06:45)
[2016-07-28] MEDS ORDERED: GLUCAGON 1 MG VIAL IM PRN (06:45)
[2016-07-28] MEDS ORDERED: SALINE FLUSH 10 ML FLUSH PRN (06:45)
[2016-07-28] MEDS ORDERED: SODIUM CHLORIDE 0.9% 1,000 ML IV SCH (06:45)
[2016-07-28] MEDS ORDERED: DEXTROSE 50% SYRINGE 50 ML IV PRN (06:45)
[2016-07-28] MEDS ORDERED: PHARMACY TO DOSE VANCOMYCIN IV SCH (06:45)
[2016-07-28] MEDS ORDERED: PHARMACY TO DOSE LEVAQUIN IV SCH (06:45)
[2016-07-28] MEDS ORDERED: SODIUM CHLORIDE 0.9% 1,000 ML IV ONE ×2 (06:45)
[2016-07-28] MEDS ORDERED: **NOTE TO NURSE XX SCH (08:00)
[2016-07-28] MEDS ORDERED: PIPERACIL/TAZO 3.375GM/50ML 50 ML IV SCH (08:05)
[2016-07-28] MEDS ORDERED: PIPERACIL/TAZO 4.5GM/100ML 100 ML IV SCH (08:45)
[2016-07-28] MEDS ORDERED: LEVOFLOXACIN 750 MG/150 ML 150 ML IV SCH (09:00)
[2016-07-28] MEDS: OMNIPAQUE 240 MG/ML, 50 ML PO SCH ×2 (09:33→11:45)
[2016-07-28] MEDS: VANCOMYCIN 1,250 MG in SODIUM CHLORIDE 0.9% 250 ML IV SCH ×2 (09:45→21:11)
[2016-07-28] MEDS: ENOXAPARIN 40 MG/0.4 ML SYR SUBQ SCH (09:52)
[2016-07-28] MEDS: MICAFUNGIN 100 MG in SODIUM CHLORIDE 0.9% 100 ML IV SCH (10:50)
[2016-07-28] MEDS: DUONEB INH SCH ×4 (11:49→23:13)
[2016-07-28] MEDS: FAMOTIDINE 20 MG INJ IV SCH ×2 (12:10→21:10)
[2016-07-28] MEDS: PIPERACIL/TAZO 4.5GM/100ML 100 ML IV SCH ×3 (12:13→23:54)
[2016-07-28] MEDS: SALINE FLUSH 10 ML FLUSH SCH ×2 (12:14→21:10)
[2016-07-28] MEDS: PROPOFOL 100 ML 100 ML IV SCH ×2 (12:33→22:21)
[2016-07-28] MEDS: D5-1/2-NS W/KCL 40MEQ/L 1,000 ML IV SCH (14:35)
[2016-07-28] MEDS: POTASSIUM CHLORIDE PREMIX 50 ML IV SCH ×6 (14:36→22:09)
[2016-07-28] MEDS: MAGNESIUM SULF 1 GM/100 ML 100 ML IV SCH ×4 (14:36→19:21)
[2016-07-28] MEDS ORDERED: POTASSIUM CHLORIDE PREMIX 50 ML IV SCH (16:05)
[2016-07-28] MEDS: FENTANYL 500 MCG/50 ML BAG IV SCH (20:08)
[2016-07-28] MEDS ORDERED: METOPROLOL 5 MG/5 ML VIAL IV ONE ×2 (20:58→21:05)
[2016-07-28] MEDS ORDERED: ALBUMIN HUMAN 25GM (25%) 100 ML IV ONE (21:05)
[2016-07-28] MEDS: CHLORHEXIDINE 0.12% ORAL CARE FOR VENT PATIENTS 15 ML SWAB SCH (23:54)
[2016-07-28] MEDS: METOPROLOL 5 MG/5 ML VIAL IV SCH (23:56)
[2016-07-29] VITALS (42 sets, daily range): BP systolic 78–139; RESP 9–19; TEMP 98.7–99.4
[2016-07-29] MEDS: DUONEB INH SCH ×6 (03:00→22:43)
[2016-07-29] MEDS: METOPROLOL 5 MG/5 ML VIAL IV SCH ×6 (04:00→23:50)
[2016-07-29] MEDS: PIPERACIL/TAZO 4.5GM/100ML 100 ML IV SCH ×4 (07:10→23:46)
[2016-07-29] MEDS: SODIUM CHLORIDE 0.9% FLUSH BAG 500 ML IV SCH (07:10)
[2016-07-29] MEDS: SALINE FLUSH 10 ML FLUSH SCH ×2 (07:23→19:56)
[2016-07-29] MEDS: FAMOTIDINE 20 MG INJ IV SCH ×2 (07:25→19:57)
[2016-07-29] MEDS: ENOXAPARIN 40 MG/0.4 ML SYR SUBQ SCH (08:07)
[2016-07-29] MEDS: MICAFUNGIN 100 MG in SODIUM CHLORIDE 0.9% 100 ML IV SCH (08:08)
[2016-07-29] MEDS: VANCOMYCIN 1,250 MG in SODIUM CHLORIDE 0.9% 250 ML IV SCH ×2 (08:08→19:58)
[2016-07-29] MEDS: PROPOFOL 100 ML 100 ML IV SCH ×2 (09:34→17:54)
[2016-07-29] MEDS: CHLORHEXIDINE 0.12% ORAL CARE FOR VENT PATIENTS 15 ML SWAB SCH ×2 (12:57→23:46)
[2016-07-29] MEDS: FENTANYL 500 MCG/50 ML BAG IV SCH ×2 (13:24→21:17)
[2016-07-29] MEDS: D5-1/2-NS W/KCL 40MEQ/L 1,000 ML IV SCH (17:55)
[2016-07-30] VITALS (28 sets, daily range): BP systolic 98–162; RESP 10–22; TEMP 98.9–100.3; Ht 154.9 cm; Wt 65.3 kg
[2016-07-30] MEDS: PROPOFOL 100 ML 100 ML IV SCH (01:52)
[2016-07-30] MEDS: FENTANYL 500 MCG/50 ML BAG IV SCH ×2 (01:52→06:38)
[2016-07-30] MEDS: DUONEB INH SCH ×6 (02:17→22:18)
[2016-07-30] MEDS: METOPROLOL 5 MG/5 ML VIAL IV SCH ×6 (04:23→23:32)
[2016-07-30] MEDS: PIPERACIL/TAZO 4.5GM/100ML 100 ML IV SCH (06:05)
[2016-07-30] MEDS: SODIUM CHLORIDE 0.9% FLUSH BAG 500 ML IV SCH (06:05)
[2016-07-30] MEDS: D5-1/2-NS W/KCL 40MEQ/L 1,000 ML IV SCH (06:06)
[2016-07-30] MEDS: VANCOMYCIN 1,250 MG in SODIUM CHLORIDE 0.9% 250 ML IV SCH (08:00)
[2016-07-30] MEDS: SALINE FLUSH 10 ML FLUSH SCH ×2 (08:26→21:05)
[2016-07-30] MEDS: ENOXAPARIN 40 MG/0.4 ML SYR SUBQ SCH (08:29)
[2016-07-30] MEDS: FAMOTIDINE 20 MG INJ IV SCH ×2 (08:38→20:50)
[2016-07-30] MEDS: MICAFUNGIN 100 MG in SODIUM CHLORIDE 0.9% 100 ML IV SCH (09:34)
[2016-07-30] MEDS ORDERED: PHARMACY TO DOSE GENTAMICIN IV SCH (09:45)
[2016-07-30] MEDS ORDERED: GENTAMICIN 270 MG in SODIUM CHLORIDE 0.9% 100 ML IV ONE (10:15)
[2016-07-30] MEDS ORDERED: ERTAPENEM 1,000 MG in SODIUM CHLORIDE 0.9% 100 ML IV SCH (11:53)
[2016-07-30] MEDS ORDERED: PIPERACIL/TAZO 4.5GM/100ML 100 ML IV SCH (12:00)
[2016-07-30] MEDS: AMPICILLIN 500 MG in SODIUM CHLORIDE 0.9% 50 ML IV SCH ×3 (12:09→23:31)
[2016-07-30] MEDS ORDERED: VANCOMYCIN 1,250 MG in SODIUM CHLORIDE 0.9% 250 ML IV SCH (20:00)
[2016-07-30] MEDS: VANCOMYCIN 1,000 MG in SODIUM CHLORIDE 0.9% 250 ML IV SCH (21:08)
[2016-07-31] VITALS (58 sets, daily range): BP systolic 99–205; RESP 0–27; TEMP 97.9–100
[2016-07-31] MEDS: DUONEB INH SCH ×6 (01:52→22:26)
[2016-07-31] MEDS ORDERED: LORAZEPAM 2 MG/ML VIAL ONE (02:04)
[2016-07-31] MEDS ORDERED: LORAZEPAM 2 MG/ML VIAL IV ONE (02:50)
[2016-07-31] MEDS: METOPROLOL 5 MG/5 ML VIAL IV SCH ×5 (03:04→21:52)
[2016-07-31] MEDS: AMPICILLIN 500 MG in SODIUM CHLORIDE 0.9% 50 ML IV SCH ×3 (05:02→17:51)
[2016-07-31] MEDS: DUONEB INH PRN (05:18)
[2016-07-31] MEDS: MICAFUNGIN 100 MG in SODIUM CHLORIDE 0.9% 100 ML IV SCH (08:47)
[2016-07-31] MEDS: FAMOTIDINE 20 MG INJ IV SCH ×2 (08:50→21:53)
[2016-07-31] MEDS: SALINE FLUSH 10 ML FLUSH SCH ×2 (08:52→21:53)
[2016-07-31] MEDS ORDERED: Furosemide 40 MG/4 ML VIAL IV ONE (08:55)
[2016-07-31] MEDS: VANCOMYCIN 1,000 MG in SODIUM CHLORIDE 0.9% 250 ML IV SCH ×2 (09:42→21:53)
[2016-07-31] MEDS: ERTAPENEM 1,000 MG in SODIUM CHLORIDE 0.9% 50 ML IV SCH (13:41)
[2016-07-31] MEDS ORDERED: DILAUDID 1 MG/ML AMP ONE (14:49)
[2016-07-31] MEDS ORDERED: ONDANSETRON 4 MG VIAL ONE (14:49)
[2016-07-31] MEDS ORDERED: ONDANSETRON 4 MG VIAL IV PUSH ONE (15:30)
[2016-07-31] MEDS ORDERED: DILAUDID 1 MG/ML AMP IV ONE (15:30)
[2016-07-31] MEDS: ENOXAPARIN 40 MG/0.4 ML SYR SUBQ SCH (15:43)
[2016-07-31] MEDS: SODIUM CHLORIDE 0.9% FLUSH BAG 500 ML IV SCH (17:05)
[2016-08-01] VITALS (40 sets, daily range): BP systolic 108–196; RESP 10–28; TEMP 97.7–99.5
[2016-08-01] MEDS: AMPICILLIN 500 MG in SODIUM CHLORIDE 0.9% 50 ML IV SCH ×5 (00:26→23:18)
[2016-08-01] MEDS: METOPROLOL 5 MG/5 ML VIAL IV SCH ×7 (00:27→23:18)
[2016-08-01] MEDS: DUONEB INH SCH ×6 (02:39→23:00)
[2016-08-01] MEDS: SODIUM CHLORIDE 0.9% FLUSH BAG 500 ML IV SCH ×2 (05:13)
[2016-08-01] MEDS: POTASSIUM CHLORIDE PREMIX 50 ML IV SCH ×6 (07:19→12:21)
[2016-08-01] MEDS: SALINE FLUSH 10 ML FLUSH SCH ×2 (07:20→19:55)
[2016-08-01] MEDS: FAMOTIDINE 20 MG INJ IV SCH ×2 (07:48→19:57)
[2016-08-01] MEDS ORDERED: Furosemide 20 MG/2 ML VIAL IV ONE (09:15)
[2016-08-01] MEDS: ERTAPENEM 1,000 MG in SODIUM CHLORIDE 0.9% 50 ML IV SCH (09:18)
[2016-08-01] MEDS: ENOXAPARIN 40 MG/0.4 ML SYR SUBQ SCH (09:19)
[2016-08-01] MEDS: MAGNESIUM SULF 1 GM/100 ML 100 ML IV SCH ×4 (10:11→13:28)
[2016-08-01] MEDS: VANCOMYCIN 1,000 MG in SODIUM CHLORIDE 0.9% 250 ML IV SCH ×2 (10:17→20:17)
[2016-08-01] MEDS: LABETALOL 100 MG/20 ML VIAL IV PUSH PRN (10:19)
[2016-08-01] MEDS ORDERED: Furosemide 40 MG/4 ML VIAL ONE (10:24)
[2016-08-01] MEDS ORDERED: CLEVIDIPINE 25 MG/50 ML 50 ML IV SCH (10:25)
[2016-08-01] MEDS: MICAFUNGIN 100 MG in SODIUM CHLORIDE 0.9% 100 ML IV SCH (11:14)
[2016-08-01] MEDS: SODIUM IV SCH ×5 (14:04)
[2016-08-01] MEDS: CALCIUM IV SCH ×5 (14:04)
[2016-08-01] MEDS: ACETATE IV SCH ×5 (14:04)
[2016-08-01] MEDS: [UNRECOGNIZED DRUG - OTHER] IV SCH ×5 (14:04)
[2016-08-01] MEDS: MAGNESIUM IV SCH ×5 (14:04)
[2016-08-01] MEDS: POTASSIUM IV SCH ×5 (14:04)
[2016-08-02] VITALS (37 sets, daily range): BP systolic 104–215; RESP 12–38; TEMP 97.5–98.7
[2016-08-02] MEDS: DUONEB INH PRN (01:13)
[2016-08-02] MEDS: LABETALOL 100 MG/20 ML VIAL IV PUSH PRN ×2 (01:52→10:11)
[2016-08-02] MEDS: DUONEB INH SCH ×6 (02:40→22:45)
[2016-08-02] MEDS: METOPROLOL 5 MG/5 ML VIAL IV SCH ×5 (04:47→20:41)
[2016-08-02] MEDS: SODIUM CHLORIDE 0.9% FLUSH BAG 500 ML IV SCH ×2 (04:49→04:51)
[2016-08-02] MEDS: AMPICILLIN 500 MG in SODIUM CHLORIDE 0.9% 50 ML IV SCH ×3 (05:37→17:28)
[2016-08-02] MEDS: ACETATE IV SCH ×11 (07:40→17:25)
[2016-08-02] MEDS: MAGNESIUM IV SCH ×11 (07:40→17:25)
[2016-08-02] MEDS: POTASSIUM IV SCH ×11 (07:40→17:25)
[2016-08-02] MEDS: [UNRECOGNIZED DRUG - OTHER] IV SCH ×11 (07:40→17:25)
[2016-08-02] MEDS: SODIUM IV SCH ×11 (07:40→17:25)
[2016-08-02] MEDS: CALCIUM IV SCH ×11 (07:40→17:25)
[2016-08-02] MEDS: SALINE FLUSH 10 ML FLUSH SCH ×2 (07:41→20:40)
[2016-08-02] MEDS: FAMOTIDINE 20 MG INJ IV SCH ×2 (08:42→20:41)
[2016-08-02] MEDS: ENOXAPARIN 40 MG/0.4 ML SYR SUBQ SCH (08:44)
[2016-08-02] MEDS: ERTAPENEM 1,000 MG in SODIUM CHLORIDE 0.9% 50 ML IV SCH (09:21)
[2016-08-02] MEDS: VANCOMYCIN 1,000 MG in SODIUM CHLORIDE 0.9% 250 ML IV SCH ×2 (10:24→20:41)
[2016-08-02] MEDS ORDERED: Furosemide 40 MG/4 ML VIAL IV ONE (10:45)
[2016-08-02] MEDS: MICAFUNGIN 100 MG in SODIUM CHLORIDE 0.9% 100 ML IV SCH (12:51)
[2016-08-02] MEDS: LISINOPRIL 10 MG TAB PO SCH (14:42)
[2016-08-02] MEDS: Carvedilol 6.25 MG TAB PO SCH ×2 (14:43→19:54)
[2016-08-02] MEDS: Furosemide 40 MG/4 ML VIAL IV SCH (17:25)
[2016-08-02] MEDS: LEVEMIR INSULIN SUBQ SCH (22:13)
[2016-08-03] VITALS (44 sets, daily range): BP systolic 127–165; RESP 8–28; TEMP 98.9–99.6
[2016-08-03] MEDS: METOPROLOL 5 MG/5 ML VIAL IV SCH ×3 (00:52→08:00)
[2016-08-03] MEDS: AMPICILLIN 500 MG in SODIUM CHLORIDE 0.9% 50 ML IV SCH ×4 (00:52→18:02)
[2016-08-03] MEDS: DUONEB INH SCH ×6 (02:25→23:11)
[2016-08-03] MEDS: SODIUM CHLORIDE 0.9% FLUSH BAG 500 ML IV SCH ×2 (05:14)
[2016-08-03] MEDS: POTASSIUM CHLORIDE PREMIX 50 ML IV SCH ×4 (07:58→13:00)
[2016-08-03] MEDS: ERTAPENEM 1,000 MG in SODIUM CHLORIDE 0.9% 50 ML IV SCH (08:29)
[2016-08-03] MEDS: SALINE FLUSH 10 ML FLUSH SCH ×2 (08:30→20:06)
[2016-08-03] MEDS: FAMOTIDINE 20 MG INJ IV SCH ×2 (08:30→20:06)
[2016-08-03] MEDS: FAT EMULSION 20% 250 ML IV SCH (08:31)
[2016-08-03] MEDS: ENOXAPARIN 40 MG/0.4 ML SYR SUBQ SCH (08:32)
[2016-08-03] MEDS: CALCIUM IV SCH ×6 (08:35)
[2016-08-03] MEDS: MAGNESIUM IV SCH ×6 (08:35)
[2016-08-03] MEDS: POTASSIUM IV SCH ×6 (08:35)
[2016-08-03] MEDS: ACETATE IV SCH ×6 (08:35)
[2016-08-03] MEDS: SODIUM IV SCH ×6 (08:35)
[2016-08-03] MEDS: [UNRECOGNIZED DRUG - OTHER] IV SCH ×6 (08:35)
[2016-08-03] MEDS: Furosemide 40 MG/4 ML VIAL IV SCH (09:00)
[2016-08-03] MEDS: VANCOMYCIN 1,000 MG in SODIUM CHLORIDE 0.9% 250 ML IV SCH ×2 (09:46→20:06)
[2016-08-03] MEDS: LISINOPRIL 10 MG TAB PO SCH (09:46)
[2016-08-03] MEDS: Carvedilol 6.25 MG TAB PO SCH (09:46)
[2016-08-03] MEDS: MICAFUNGIN 100 MG in SODIUM CHLORIDE 0.9% 100 ML IV SCH (12:06)
[2016-08-03] MEDS ORDERED: Carvedilol 3.125 MG TAB PO ONE (12:25)
[2016-08-03] MEDS: Furosemide 40 MG TAB PO SCH (16:07)
[2016-08-03] MEDS: Carvedilol 3.125 MG TAB PO SCH (20:06)
[2016-08-03] MEDS: LEVEMIR INSULIN SUBQ SCH (20:07)
[2016-08-04] VITALS (44 sets, daily range): BP systolic 98–157; RESP 6–32; TEMP 97.7–100.1
[2016-08-04] MEDS ORDERED: CALCIUM CENTRAL SCH ×6 (00:02)
[2016-08-04] MEDS ORDERED: [UNRECOGNIZED DRUG - OTHER] CENTRAL SCH ×6 (00:02)
[2016-08-04] MEDS ORDERED: POTASSIUM CENTRAL SCH ×6 (00:02)
[2016-08-04] MEDS ORDERED: SODIUM CENTRAL SCH ×6 (00:02)
[2016-08-04] MEDS ORDERED: MAGNESIUM CENTRAL SCH ×6 (00:02)
[2016-08-04] MEDS ORDERED: ACETATE CENTRAL SCH ×6 (00:02)
[2016-08-04] MEDS ORDERED: MISSING DOSE XX ONE (00:45)
[2016-08-04] MEDS: AMPICILLIN 500 MG in SODIUM CHLORIDE 0.9% 50 ML IV SCH ×4 (00:56→17:18)
[2016-08-04] MEDS: DUONEB INH SCH ×6 (02:25→23:51)
[2016-08-04] MEDS: SODIUM CHLORIDE 0.9% FLUSH BAG 500 ML IV SCH ×2 (05:25)
[2016-08-04] MEDS: SALINE FLUSH 10 ML FLUSH SCH ×2 (08:00→20:00)
[2016-08-04] MEDS ORDERED: Furosemide 40 MG TAB PO SCH (09:00)
[2016-08-04] MEDS: LISINOPRIL 5 MG TAB PO SCH (09:00)
[2016-08-04] MEDS: ERTAPENEM 1,000 MG in SODIUM CHLORIDE 0.9% 50 ML IV SCH (09:35)
[2016-08-04] MEDS: ENOXAPARIN 40 MG/0.4 ML SYR SUBQ SCH (09:35)
[2016-08-04] MEDS: Carvedilol 3.125 MG TAB PO SCH ×2 (09:35→21:27)
[2016-08-04] MEDS: FAMOTIDINE 20 MG INJ IV SCH ×2 (09:36→21:27)
[2016-08-04] MEDS: Furosemide 40 MG TAB PO SCH (09:36)
[2016-08-04] MEDS: VANCOMYCIN 1,000 MG in SODIUM CHLORIDE 0.9% 250 ML IV SCH ×2 (11:03→21:27)
[2016-08-04] MEDS: CALCIUM CENTRAL SCH ×5 (16:30)
[2016-08-04] MEDS: MAGNESIUM CENTRAL SCH ×5 (16:30)
[2016-08-04] MEDS: ACETATE CENTRAL SCH ×5 (16:30)
[2016-08-04] MEDS: POTASSIUM CENTRAL SCH ×5 (16:30)
[2016-08-04] MEDS: SODIUM CENTRAL SCH ×5 (16:30)
[2016-08-04] MEDS: [UNRECOGNIZED DRUG - OTHER] CENTRAL SCH ×5 (16:30)
[2016-08-04] MEDS: LEVEMIR INSULIN SUBQ SCH (21:00)
[2016-08-05] VITALS (21 sets, daily range): BP systolic 127–158; RESP 11–29; TEMP 97.8–100.2
[2016-08-05] MEDS: AMPICILLIN 500 MG in SODIUM CHLORIDE 0.9% 50 ML IV SCH ×4 (00:04→17:30)
[2016-08-05] MEDS: DUONEB INH SCH ×6 (02:48→23:00)
[2016-08-05] MEDS: SODIUM CHLORIDE 0.9% FLUSH BAG 500 ML IV SCH ×2 (05:17)
[2016-08-05] MEDS: POTASSIUM CENTRAL SCH ×10 (06:03→21:55)
[2016-08-05] MEDS: CALCIUM CENTRAL SCH ×10 (06:03→21:55)
[2016-08-05] MEDS: MAGNESIUM CENTRAL SCH ×10 (06:03→21:55)
[2016-08-05] MEDS: SODIUM CENTRAL SCH ×10 (06:03→21:55)
[2016-08-05] MEDS: [UNRECOGNIZED DRUG - OTHER] CENTRAL SCH ×10 (06:03→21:55)
[2016-08-05] MEDS: ACETATE CENTRAL SCH ×10 (06:03→21:55)
[2016-08-05] MEDS: SALINE FLUSH 10 ML FLUSH SCH ×2 (08:00→21:58)
[2016-08-05] MEDS: ERTAPENEM 1,000 MG in SODIUM CHLORIDE 0.9% 50 ML IV SCH (08:03)
[2016-08-05] MEDS ORDERED: LEVEMIR INSULIN SUBQ ONE (08:05)
[2016-08-05] MEDS: FAMOTIDINE 20 MG INJ IV SCH (08:08)
[2016-08-05] MEDS: FAT EMULSION 20% 250 ML IV SCH (08:12)
[2016-08-05] MEDS: ENOXAPARIN 40 MG/0.4 ML SYR SUBQ SCH (08:12)
[2016-08-05] MEDS: Carvedilol 6.25 MG TAB PO SCH ×3 (09:15→21:00)
[2016-08-05] MEDS: VANCOMYCIN 1,000 MG in SODIUM CHLORIDE 0.9% 250 ML IV SCH ×2 (10:00→21:57)
[2016-08-05] MEDS: Furosemide 40 MG TAB PO SCH ×2 (10:01→10:08)
[2016-08-05] MEDS: LISINOPRIL 5 MG TAB PO SCH ×2 (10:01→10:08)
[2016-08-05] MEDS: Carvedilol 3.125 MG TAB PO SCH (10:09)
[2016-08-05] MEDS ORDERED: METOPROLOL 5 MG/5 ML VIAL IV ONE (11:20)
[2016-08-05] MEDS: LEVEMIR INSULIN SUBQ SCH (21:00)
[2016-08-06] VITALS (8 sets, daily range): BP systolic 136–168; RESP 16–30; TEMP 97–98
[2016-08-06] MEDS: DUONEB INH PRN (01:16)
[2016-08-06] MEDS ORDERED: Furosemide 40 MG/4 ML VIAL IV ONE (01:50)
[2016-08-06] MEDS ORDERED: LORAZEPAM 2 MG/ML VIAL IV ONE (01:50)
[2016-08-06] MEDS ORDERED: Furosemide 40 MG/4 ML VIAL ONE (01:51)
[2016-08-06] MEDS ORDERED: LORAZEPAM 2 MG/ML VIAL ONE (01:52)
[2016-08-06] MEDS: AMPICILLIN 500 MG in SODIUM CHLORIDE 0.9% 50 ML IV SCH ×2 (02:00→05:50)
[2016-08-06] MEDS: FAMOTIDINE 20 MG INJ IV SCH ×3 (02:01→21:19)
[2016-08-06] MEDS: DUONEB INH SCH ×6 (02:32→23:15)
[2016-08-06] MEDS: SODIUM CHLORIDE 0.9% FLUSH BAG 500 ML IV SCH ×2 (05:51→05:52)
[2016-08-06] MEDS ORDERED: LORAZEPAM 2 MG/ML VIAL IV PRN (07:35)
[2016-08-06] MEDS: SALINE FLUSH 10 ML FLUSH SCH (08:05)
[2016-08-06] MEDS: ERTAPENEM 1,000 MG in SODIUM CHLORIDE 0.9% 50 ML IV SCH (08:05)
[2016-08-06] MEDS: Carvedilol 6.25 MG TAB PO SCH (09:00)
[2016-08-06] MEDS: LISINOPRIL 5 MG TAB PO SCH (09:00)
[2016-08-06] MEDS: Furosemide 40 MG TAB PO SCH (09:00)
[2016-08-06] MEDS: ENOXAPARIN 40 MG/0.4 ML SYR SUBQ SCH (09:15)
[2016-08-06] MEDS: VANCOMYCIN 1,000 MG in SODIUM CHLORIDE 0.9% 250 ML IV SCH (11:07)
[2016-08-06] MEDS: [UNRECOGNIZED DRUG - OTHER] CENTRAL SCH ×5 (12:51)
[2016-08-06] MEDS: MAGNESIUM CENTRAL SCH ×5 (12:51)
[2016-08-06] MEDS: ACETATE CENTRAL SCH ×5 (12:51)
[2016-08-06] MEDS: SODIUM CENTRAL SCH ×5 (12:51)
[2016-08-06] MEDS: POTASSIUM CENTRAL SCH ×5 (12:51)
[2016-08-06] MEDS: CALCIUM CENTRAL SCH ×5 (12:51)
[2016-08-06] MEDS ORDERED: MORPHINE 2 MG/ML SYR IV PRN (15:30)
[2016-08-06] MEDS ORDERED: Furosemide 20 MG/2 ML VIAL IV SCH (15:37)
[2016-08-06] MEDS ORDERED: METOPROLOL 5 MG/5 ML VIAL IV SCH (18:00)
[2016-08-06] MEDS ORDERED: ENALAPRILAT IV SCH (18:00)
[2016-08-06] MEDS: LEVEMIR INSULIN SUBQ SCH (21:20)
[2016-08-07 00:12] VITALS: BP_SYST 140; RESP 18
[2016-08-07 00:14] VITALS: RESP 22
[2016-08-07] MEDS ORDERED: VANCOMYCIN 750 MG in SODIUM CHLORIDE 0.9% 250 ML IV SCH (05:00)
== END 2016-08-07 01:09 | DRG 871 ==
LOC: ENRESERVTM → ENRESERVDT → ER 03:55 → ENPENDDIS 06:45 → EMR 06:45 → CCU 07:49 → 4THW 08-05 19:41
PROVIDERS: ADMIT Family Medicine; ATTEND Family Medicine
PROC: 5A1945Z Respiratory Ventilation, 24-96 Consecutive Hours (ICD-10-PCS; 2016-07-28)
PROC: 0BH17EZ Insertion of Endotracheal Airway into Trachea, Via Natural or Artificial Opening (ICD-10-PCS; 2016-07-28)
PROC: 0W993ZX Drainage of Right Pleural Cavity, Percutaneous Approach, Diagnostic (ICD-10-PCS; principal; 2016-07-29)
PROC: 0D9W30Z Drainage of Peritoneum with Drainage Device, Percutaneous Approach (ICD-10-PCS; 2016-07-31)
PROC: 02HV33Z Insertion of Infusion Device into Superior Vena Cava, Percutaneous Approach (ICD-10-PCS; 2016-07-31)
DX: A41.9 Sepsis, unspecified organism (principal); J69.0 Pneumonitis due to inhalation of food and vomit; J96.01 Acute respiratory failure with hypoxia; I50.33 Acute on chronic diastolic (congestive) heart failure; K31.6 Fistula of stomach and duodenum; R65.20 Severe sepsis without septic shock; F32.9 Major depressive disorder, single episode, unspecified; E11.65 Type 2 diabetes mellitus with hyperglycemia; Z79.4 Long term (current) use of insulin; E78.5 Hyperlipidemia, unspecified; F41.9 Anxiety disorder, unspecified; E03.9 Hypothyroidism, unspecified; I11.0 Hypertensive heart disease with heart failure; I35.0 Nonrheumatic aortic (valve) stenosis; I25.10 Atherosclerotic heart disease of native coronary artery without angina pectoris; D47.3 Essential (hemorrhagic) thrombocythemia; E83.42 Hypomagnesemia; E87.6 Hypokalemia; Z86.73 Personal history of transient ischemic attack (TIA), and cerebral infarction without residual deficits
CPT/HCPCS: 31720; 32555; 36415; 36430; 36569; 36600; 49405; 51702; 71010; 71260; 74177; 76937; 80048; 80051; 80053; 80170; 80202; 81001; 82150; 82330; 82553; 82803; 82945; 82947; 83605; 83615; 83735; 83880; 83986; 84100; 84132; 84155; 84478; 84484; 85007; 85014; 85018; 85025; 85027; 85379; 85610; 85730; 86850; 86900; 86901; 86923; 87040; 87071; 87077; 87102; 87116; 87186; 87205; 87206; 87278; 87299; 87493; 88108; 89051; 93005; 93306; 94002; 94003; 94640; 94660; 94799; 96365; 96366; 96375; 99222; 99232; 99233; 99238; 99291